=== PATIENT | male | born 1930 | race Caucasian/White ===

== ENCOUNTER → 2016-12-05 | Outpatient (CLI) | payer OTHER ==
--- NOTE | ~2016-12-05 | CT69 ---
[facility] A Service [facility] RADIOLOGY TEXT RESULTS PATIENT: YOLI JETT LOCATION: [facility] : 34 UNIT #: [id number] AGE: [address]: Neema Delaney MD SEX: M ORDER DR: [id number] [facility] [address]. [place], [place] [address] [id number] O MR#: [id number] [facility] #: [id number] NAME: YOLI JETT : 1930 SEX: M STUDY DATE/TIME: 12/05/2016 10:35 UNIT: [facility] ROOM: STUDY DESCRIPTION: CT Head W Contrast Attending Physician: Neema Delaney M.D. Referring Physician: Neema Delaney M.D. Ordering Physician: Neema Delaney M.D. Primary Care Physician: Neema Delaney M.D. MEDICAL IMAGING REPORT This report is preliminary unless electronic signature is present EXAM Head CT with contrast HISTORY Memory loss for the past 6 months with pain in the tongue for the past 3 years. TECHNIQUE Axial images were obtained with contrast. 100 mL of Isovue was used. CT does reduction techniques were employed. This CT exam was performed with one or more of the following radiation dose reduction techniques: automatic exposure control, adjustment of mA and/or kV according to patient size, and iterative reconstruction. FINDINGS Generalized atrophy is noted. 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 There is no evidence of mass lesion, hemorrhage or edema. No midline shift is noted. After contrast administration, no abnormal enhancement is seen. Extraaxial structures are remarkable for mucosal thickening versus a small polyp in the right nasal cavity. 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 No acute findings in the brain. Small polyp versus mucosal thickening in the right nasal cavity. Dictated by... Quintin Gomez M.D. THIS IS AN ELECTRONICALLY VERIFIED REPORT Quintin Gomez M.D. at 12/05/2016 4:47 PM [facility] A Service [facility] RADIOLOGY TEXT RESULTS PATIENT: YOLI JETT [facility] 32 UNIT #: [id number] AGE: [address]: Neema Delaney MD SEX: M ORDER DR: KAMRYN/tanya TD: 12/05/2016 14:35 JOB #: [id number] MEDICAL IMAGING REPORT COPY
--- NOTE | ~2016-12-05 | CT114 ---
[facility] A Service of [facility] RADIOLOGY TEXT RESULTS PATIENT: YOLI JETT LOCATION: [facility] : 32 UNIT #: [id number] AGE: [address]: Neema Delaney MD SEX: M ORDER DR: [id number] [facility] [address] [place], [place] [address] [id number] O MR#: [id number] Acc #: [id number] NAME: YOLI JETT : 1930 SEX: M STUDY DATE/TIME: 12/05/2016 10:35 UNIT: [facility] ROOM: STUDY DESCRIPTION: CT Soft Tissue Neck W Cont Attending Physician: Neema Delaney M.D. Referring Physician: Neema Delaney M.D. Ordering Physician: Neema Delaney M.D. Primary Care Physician: Neema Delaney M.D. MEDICAL IMAGING REPORT This report is preliminary unless electronic signature is present EXAM Soft tissue neck CT with contrast, 12/05/2016 PROCEDURE Axial contrast-enhanced soft tissue neck CT with multiplanar reformats. This CT exam was performed with one or more of the following radiation dose reduction techniques: automatic exposure control, adjustment of mA and/or kV according to patient size, and iterative reconstruction. HISTORY Tongue pain x3 years. FINDINGS There is no suspicious mass or adenopathy. Nondetailed images of the larynx are unremarkable. There is plaque at the cervical carotid bifurcations. The findings do not suggest substantial internal carotid stenosis on either side. There is cervical spinal degenerative change but no acute bony abnormality. There is some maxillary sinus mucosal thickening. IMPRESSION No acute findings. No suspicious mass or adenopathy, inflammatory change or other acute finding. Dictated by... Ubaldo Garcia M.D. THIS IS AN ELECTRONICALLY VERIFIED REPORT Ubaldo Garcia M.D. at 12/07/2016 3:42 PM [facility] A Service [facility] RADIOLOGY TEXT RESULTS PATIENT: YOLI EJTT LOCATION: [facility] : 32 UNIT #: [id number] AGE: [address]: Neema Delaney MD SEX: M ORDER DR: WILL/cyndi TD: 12/06/2016 00:10 JOB #: [id number] MEDICAL IMAGING REPORT COPY
[2016-12-05 15:00] LABS: POC - CREATININE 1.29 mg/dL (0.64-1.27)
== END | disposition home or self-care (01) ==
LOC: CCAT 09:49
PROVIDERS: Family Medicine
DX: R42 Dizziness and giddiness (principal); R41.3 Other amnesia; K14.6 Glossodynia; G31.9 Degenerative disease of nervous system, unspecified
CPT/HCPCS: 70460; 70491; 82565; Q9967